=== PATIENT | female | born 1990 | race Caucasian/White ===

== ENCOUNTER 2017-10-28 10:37 | Inpatient (IN) | payer OTHER ==
[2017-10-28] MEDS ORDERED: DINOPROSTONE 10 MG VAG SUPP (11:56)
[2017-10-28 11:57] LABS: ADD MAN DIFF? NO
[2017-10-28] MEDS ORDERED: LIDOCAINE 1% (MPF) 30 ML INJ INJ (12:00)
[2017-10-28] MEDS ORDERED: CARBOPROST 250 MCG INJ IM (12:00)
[2017-10-28] MEDS ORDERED: OXYTOCIN 30 UNITS/LR 500 ML IV (12:00)
[2017-10-28] MEDS ORDERED: IBUPROFEN 600 MG TAB PO (12:00)
[2017-10-28] MEDS ORDERED: METHYLERGONOVINE 0.2 MG INJ IM (12:00)
[2017-10-28] MEDS ORDERED: MISOPROSTOL 200 MCG TAB PR (12:00)
[2017-10-28 12:01] LABS: WHITE BLOOD COUNT 9.2 10^3/ul (4.8-10.8)
[2017-10-28 12:01] LABS: BASOPHILS % 0.2 % (0.0-2.0); EOSINOPHILS # 0.1 10^3/ul (0.0-0.5); EOSINOPHILS % 0.5 % (0.0-7.0); HEMATOCRIT 33.6 % (37.0-47.0); HEMOGLOBIN 11.2 g/dl (12.0-16.0); LYMPHOCYTES # 1.7 10^3/ul (0.8-2.9); LYMPHOCYTES % 18.7 % (15.0-51.0); MEAN CORPUSCULAR HEMOGLOBIN 26.5 pg (29.0-33.0); MEAN CORPUSCULAR HGB CONC 33.3 g/dl (32.0-37.0); MEAN CORPUSCULAR VOLUME 79.6 fl (82.0-101.0); MEAN PLATELET VOLUME 12.2 fl (7.4-10.4); MONOCYTE # 0.7 10^3/ul (0.3-0.9); MONOCYTES % 7.4 % (0.0-11.0); NEUTROPHIL # 6.7 10^3/ul (1.6-7.5); NEUTROPHILS % 72.7 % (39.0-77.0); PLATELET COUNT 202 10^3/UL (140-415); RED BLOOD COUNT 4.22 10^6/ul (4.20-5.40); RED CELL DISTRIBUTION WIDTH 13.4 % (11.5-14.5)
[2017-10-28] MEDS: DINOPROSTONE 10 MG VAG SUPP VAG (12:19)
[2017-10-28 12:27] LABS: INR 0.91; PROTIME 12.3 Sec (11.9-14.9)
[2017-10-28 12:28] LABS: PARTIAL THROMBOPLASTIN TIME 26.6 Sec (25.0-35.0)
[2017-10-28] MEDS: LACTATED RINGER'S 1,000 ML IV ×2 (12:37→22:22)
[2017-10-28] MEDS: AMPICILLIN 2 GM/NS (PMX) 100 ML IV (12:55)
[2017-10-28 14:08] LABS: HEPATITIS B SURFACE ANTIGEN NEGATIVE (NEGATIVE)
[2017-10-28 15:13] LABS: RAPID PLASMA REAGIN NONREACTIVE (NR)
[2017-10-28] MEDS: AMPICILLIN 1 GM/NS (PMX) 50 ML IV ×3 (16:30→23:59)
[2017-10-29] MEDS: AMPICILLIN 1 GM/NS (PMX) 50 ML IV ×4 (04:03→16:09)
[2017-10-29] MEDS: BUTORPHANOL 2 MG INJ IV ×2 (06:10→12:07)
[2017-10-29] MEDS: LACTATED RINGER'S 1,000 ML IV ×2 (07:50→16:31)
[2017-10-29] MEDS: OXYTOCIN 30 UNITS/LR 500 ML IV ×3 (10:45→20:16)
[2017-10-29] MEDS ORDERED: METHYLERGONOVINE 0.2 MG INJ IM (23:00)
[2017-10-29] MEDS ORDERED: OXYTOCIN 30 UNITS/LR 500 ML IV (23:00)
[2017-10-29] MEDS ORDERED: CARBOPROST 250 MCG INJ IM (23:00)
[2017-10-29] MEDS ORDERED: MISOPROSTOL 200 MCG TAB PR (23:00)
[2017-10-29] MEDS ORDERED: ZOLPIDEM 5 MG TAB PO (23:00)
[2017-10-29] MEDS ORDERED: HYDROCODONE/APAP (5/325) TAB PO ×2 (23:00)
[2017-10-30] MEDS: IBUPROFEN 600 MG TAB PO ×4 (00:23→17:53)
[2017-10-30] MEDS: LACTATED RINGER'S 1,000 ML IV* ×3 (00:24→14:57)
[2017-10-30 08:52] LABS: ADD MAN DIFF? NO
[2017-10-30 08:55] LABS: WHITE BLOOD COUNT 13.2 10^3/ul (4.8-10.8)
[2017-10-30 08:55] LABS: BASOPHILS % 0.1 % (0.0-2.0); EOSINOPHILS % 0.1 % (0.0-7.0); HEMATOCRIT 29.2 % (37.0-47.0); HEMOGLOBIN 9.7 g/dl (12.0-16.0); LYMPHOCYTES % 14.9 % (15.0-51.0); MEAN CORPUSCULAR HEMOGLOBIN 26.7 pg (29.0-33.0); MEAN CORPUSCULAR HGB CONC 33.2 g/dl (32.0-37.0); MEAN CORPUSCULAR VOLUME 80.4 fl (82.0-101.0); MEAN PLATELET VOLUME 11.9 fl (7.4-10.4); MONOCYTE # 1.2 10^3/ul (0.3-0.9); MONOCYTES % 9.4 % (0.0-11.0); NEUTROPHIL # 9.9 10^3/ul (1.6-7.5); NEUTROPHILS % 75.1 % (39.0-77.0); PLATELET COUNT 185 10^3/UL (140-415); RED BLOOD COUNT 3.63 10^6/ul (4.20-5.40); RED CELL DISTRIBUTION WIDTH 13.5 % (11.5-14.5)
[2017-10-30] MEDS: MAGNESIUM HYDROXIDE 30ML CUP PO ×2 (10:17→21:18)
[2017-10-30] MEDS: WITCH HAZEL/GLYCERIN PAD PR (10:18)
[2017-10-30] MEDS: LANOLIN 7 GM TUBE TOP (10:18)
[2017-10-30] MEDS: SENNA/DOCUSATE NA (8.6MG/50MG) TAB PO ×2 (10:18→21:18)
[2017-10-30] MEDS: BENZOCAINE 20% 56 ML SPRAY TOP (10:19)
[2017-10-30 14:31] LABS: RHOGAM PROFILE 1 1
[2017-10-31] MEDS: IBUPROFEN 600 MG TAB PO ×4 (00:26→18:42)
[2017-10-31] MEDS: DIBUCAINE 1% 30 GM OINT PR (09:09)
[2017-10-31] MEDS: SENNA/DOCUSATE NA (8.6MG/50MG) TAB PO (09:09)
[2017-10-31] MEDS: MAGNESIUM HYDROXIDE 30ML CUP PO (09:09)
[2017-10-31] MEDS: WITCH HAZEL/GLYCERIN PAD PR (09:09)
[2017-10-31] MEDS: MEASLES,MUMPS,RUBELLA VACCINE INJ SC* (09:11)
[2017-10-31] MEDS: VARICELLA VACCINE LIVE/PF 1,350 UNIT/0.5 ML ML SC* (09:11)
[2017-10-31] MEDS: INFLUENZA VIRUS VACCINE 0.5 ML (DISPENSING) IM* (09:11)
[2017-10-31] MEDS: DIPHTH/TET/ACEL PERTUSS (ADULT) 0.5 ML VIAL IM* (09:11)
[2017-10-31] MEDS: BENZOCAINE 20% 56 ML SPRAY TOP (18:42)
== END 2017-10-31 20:00 | disposition home or self-care (01) | DRG 775 ==
LOC: L-D 10:37 → PP1 10-29 23:08
PROVIDERS: Obstetrics & Gynecology
PROC: 10E0XZZ Delivery of Products of Conception, External Approach (ICD-10-PCS; principal; 2017-10-29)
PROC: 3E033VJ Introduction of Other Hormone into Peripheral Vein, Percutaneous Approach (ICD-10-PCS; 2017-10-29)
PROC: 0W8NXZZ Division of Female Perineum, External Approach (ICD-10-PCS; 2017-10-29)
DX: O48.0 Post-term pregnancy (principal); Z37.0 Single live birth; Z3A.40 40 weeks gestation of pregnancy
CPT/HCPCS: 85025; 85610; 85730; 86592; 86850; 86870; 86885; 86900; 86901; 87340; 90686; 90715; 90716